=== PATIENT | male | born 1980 | race African-American/Black ===

== ENCOUNTER 2017-09-21 22:15 | Emergency (ER) | payer SELFPAY ==
[~2017-09-21] VITALS: Ht 182.9 cm; Wt 104.0 kg
[2017-09-21] MEDS ORDERED: MORPHINE SULFATE 4 MG/ML CPJ (NOT FOR IM USE) IV STA (22:21)
[2017-09-21] MEDS ORDERED: ONDANSETRON HCL 4MG/2ML VIAL IV STA (22:21)
[2017-09-21] MEDS ORDERED: SODIUM CHLORIDE 0.9% 1,000 ML IV ONE ×2 (22:21→22:45)
[2017-09-21] MEDS ORDERED: CEFAZOLIN 1000MG PREMIX 50 ML IV ONE (22:30)
[2017-09-21] MEDS ORDERED: TETANUS, DIPHTHERIA, PERTUSSIS VAC/PF 0.5ML (>7YR OLD) IM ONE (22:30)
[2017-09-21] MEDS ORDERED: IOHEXOL-350 100 ML BOTTLE ONE (22:55)
[2017-09-21] MEDS ORDERED: KETOROLAC 30MG/ML VIAL IV ONE (23:15)
[2017-09-21 23:20] LABS: BASOPHILS % 0.4 % (0.0-2.0); EOSINOPHILS % 1.3 % (0.0-5.0); HEMATOCRIT. 42.4 % (42.0-52.0); HEMOGLOBIN. 14.1 g/dL (14.0-18.0); LYMPHOCYTES % 22.2 % (20.0-50.0); MEAN CORPUSCULAR HEMOGLOBIN 31.4 pg (28.0-32.0); MEAN CORPUSCULAR VOLUME 94.2 fL (80.0-94.0); MEAN PLATELET VOLUME 7.8 fl (7.4-10.4); MONOCYTES % 8.6 % (2.0-8.0); NEUTROPHILS % 67.5 % (40.0-76.0); PLATELET 186 x1000/uL (130-400); RED CELL DISTRIBUTION WIDTH 12.8 % (11.6-14.6)
[2017-09-21 23:25] LABS: CHLORIDE 105 mEq/L (98-107)
[2017-09-21 23:29] LABS: INR 1.1; PARTIAL THROMBOPLASTIN TIME 23.3 sec (23.4-31.0); PROTHROMBIN TIME 11.3 sec (9.4-11.6)
[2017-09-21] MEDS ORDERED: MORPHINE SULFATE 10 MG/ML CPJ ONE (23:55)
[2017-09-22 00:45] LABS: CLARITY URINE CLEAR (CLEAR); COLOR URINE YELLOW (YELLOW); KETONES URINE 1+ (NEGATIVE); LEUKOCYTE ESTERASE URINE NEGATIVE (NEGATIVE); NITRITE URINE NEGATIVE (NEGATIVE); OCCULT BLOOD URINE NEGATIVE (NEGATIVE); PROTEIN URINE NEGATIVE (NEGATIVE); SPECIFIC GRAVITY URINE 1.068 (1.005-1.030)
[2017-09-22] MEDS ORDERED: MORPHINE SULFATE 10 MG/ML CPJ IV ONE (00:45)
[2017-09-22 03:19] VITALS: BP 141/79
== END 2017-09-22 04:47 | disposition short-term general hospital (02) ==
LOC: ER 22:18
DX: S81.831A Puncture wound without foreign body, right lower leg, initial encounter (principal); W34.00XA Accidental discharge from unspecified firearms or gun, initial encounter; Y93.89 Activity, other specified; Y92.89 Other specified places as the place of occurrence of the external cause; Y99.8 Other external cause status
CPT/HCPCS: 36415; 71045; 72170; 75635; 80053; 81003; 83690; 85025; 85610; 85730; 86850; 86900; 86901; 90471; 90715; 96361; 96365; 96375; 99291; J0690; J1885; J2270; J2405; J7030; Q9967